=== PATIENT | female | born 1990 | race Caucasian/White ===

== ENCOUNTER 2016-12-02 13:43 | Emergency (ER) | payer OTHER ==
[~2016-12-02] VITALS: Ht 157.5 cm; Wt 70.3 kg
--- NOTE | 2016-12-02 13:59 | ED HAND/WRIST INJURY COMPLAINT ---
History of Present Illness General Chief Complaint: Laceration Procedure Stated Complaint: FINGER LAC Source: patient Exam Limitations: no limitations Vital Signs & Intake/Output Vital Signs & Intake/Output Vital Signs Date Time Temp Pulse Resp B/P B/P Pulse O2 O2 Flow FiO2 Mean Ox Delivery Rate 12/02 1358 98 Room Air 12/02 1346 96.9 16 96 Room Air Allergies Coded Allergies: No Known Allergies (12/02/16) Reconcile Medications No Known Home Medications Triage Note: 26 Y/O FEMALE C/O LACERATION TO L 1ST FINGER, CUT WITH PIZZA CUTTER. STATES LAST TETANUS 2 YEARS AGO. 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 Triage Nurses Notes Reviewed? yes Occurred: yesterday Duration: day(s): (1) Timing: recent history Injury Environment: work Severity: mild, moderate Pain/Injury Location: Left: 2nd finger. Method of Injury: laceration No Modifying Factors: none : No Patient currently breastfeeds: No HPI: 26-year-old female comes into emergency room for further evaluation of laceration to left index finger. Laceration occurred yesterday during work. She cut it on a pizza slicer. Tetanus shot up-to-date. Patient was told today that she needs to come in to have it evaluated. She cleaned it thoroughly yesterday. Denies any other associated symptoms. Past History Travel History Traveled to [place] past 21 day No Medical History Any Pertinent Medical History? 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 No Review of Systems Review of Systems Constitutional: Reports: no symptoms. EENTM: Reports: no symptoms. Respiratory: Reports: no symptoms. Cardiovascular: Reports: no symptoms. GI: Reports: no symptoms. Genitourinary: Reports: no symptoms. Musculoskeletal: Reports: no symptoms. Skin: Reports: see HPI. Neurological/Psychological: Reports: no symptoms. Hematologic/Endocrine: Reports: no symptoms. Immunologic/Allergic: Reports: no symptoms. All Other Systems: Reviewed and Negative Physical Exam Physical Exam General Appearance: well developed/nourished, mild distress Head: atraumatic Eyes: Bilateral: normal appearance. Ears, Nose, Throat: normal ENT inspection, hearing grossly normal Neck: normal inspection Cardiovascular/Respiratory: no respiratory distress Back: normal inspection Wrist Left: normal range of motion Hand Left: 2nd finger, skin flap Hand Right: normal inspection Neurologic/Tendon: normal sensation, normal motor functions, normal tendon functions, responds to pain, no evidence tendon injury, no pulse deficit Skin: intact, normal color, warm/dry Lymphatic: no anterior cervical zeke Progress Differential Diagnosis: compartment syndrome, fracture, paronychia, septic arthritis, sprain, tenosynovitis, tendon laceration Plan of Care: 12/02/2016 2:32:36 PM Too late to perform suturing. Steri-Strips placed. Watch for signs of infection. Departure Departure Disposition: HOME OR SELF CARE Condition: Stable Clinical Impression Primary Impression: Finger laceration Referrals: BEULAH HENDERSON Additional Instructions: Keep covered with dry dressing and bacitracin. Watch for signs of infection such as redness on discharge fever chills. Please go over all results of today's visit with your primary care doctor. Contact your primary care doctor to let them know you were here in the emergency room. There may be nonspecific findings which may not be related to your visit today here in the emergency room but may require further evaluation and chronic monitoring by your primary care doctor. If you had a laceration today the chance of foreign body always remains. You should follow-up with your primary care doctor for recheck in 3-5 days for a wound check. If you had an x-ray done there is a chance that a fracture could have been missed on initial read and you should follow-up with your primary care doctor for repeat x-rays if symptoms persist. If your blood pressure was elevated here in the emergency room please have rechecked by her primary care doctor within the next 48 hours by your primary care doctor. If you were prescribed a narcotic here in the emergency room or any type of controlled substances you're not allowed to drive while taking this medication or operate any type of heavy machinery. Narcotics can make you feel lightheaded dizziness nausea and can cause constipation. You may need to pick up attendant a stool softener. Thank you for choosing [facility] emergency room. Please return to the emergency room immediately if you have any other concerns worsening of symptoms. Departure Forms: Customer Survey [place] Employee Acc General Discharge Information Prescriptions: Current Visit Scripts No Known Home Medications Procedures Laceration/Wound Repair Progress: Steri-Strips placed over her left index finger, finger splint placed,
== END 2016-12-02 14:20 ==
LOC: ERH 13:43
DX: S61.211A Laceration without foreign body of left index finger without damage to nail, initial encounter (principal); W27.8XXA Contact with other nonpowered hand tool, initial encounter; Y92.9 Unspecified place or not applicable; Y93.G1 Activity, food preparation and clean up